=== PATIENT | male | born 1980 | race Caucasian/White ===

== ENCOUNTER 2020-12-31 07:38 | Outpatient (CLI) | payer OTHER | END 2020-12-31 07:39 | disposition home or self-care (01) | LOC: SONOGRAMA 07:38 | DX: R16.1 Splenomegaly, not elsewhere classified (principal); R74.01 Elevation of levels of liver transaminase levels ==

== ENCOUNTER 2021-11-07 08:11 | Outpatient (CLI) | payer OTHER | END 2021-11-07 08:20 | disposition home or self-care (01) | LOC: SONOGRAMA 08:11 | DX: K82.4 Cholesterolosis of gallbladder (principal) ==

== ENCOUNTER 2022-04-22 07:57 | Outpatient (CLI) | payer OTHER | END 2022-04-22 08:08 | disposition home or self-care (01) | LOC: SONOGRAMA 07:57 | DX: K82.8 Other specified diseases of gallbladder (principal); R74.01 Elevation of levels of liver transaminase levels ==

== ENCOUNTER 2022-06-16 17:43 | Outpatient (CLI) | payer OTHER | END 2022-06-16 22:22 | disposition home or self-care (01) | LOC: LAB 17:43 | DX: Z20.828 Contact with and (suspected) exposure to other viral communicable diseases (principal); Z20.818 Contact with and (suspected) exposure to other bacterial communicable diseases ==